=== PATIENT | female | born 1990 | race Caucasian/White ===

== ENCOUNTER 2020-04-06 13:43 | Outpatient (CLI) | payer OTHER ==
--- NOTE | 2020-04-06 15:05 | ULT ---
Pelvic ultrasound: 04/06/2020 COMPARISON: None HISTORY: 30-year-old female with vaginal bleeding TECHNIQUE: Multiplanar grayscale sonographic imaging of the pelvis is obtained. Imaging includes orr sabdominal and endovaginal imaging. The ovaries are assessed with Doppler interrogation including color flow and spectral analysis. FINDINGS: The uterus measures 7.0 x 3.7 x 4.3 cm. No normal appearing gestational sac is appreciated on this exam. On the endovaginal imaging in the region of the lower uterine segment there is a lobulated hypoechoic structure associated with the endometrium which measures 1.3 x 1.7 x 1.0 cm. Thi s could represent an abnormal gestational sac or a fluid collection. Endometrial thickness is approximately 1.5 cm. No significant free fluid is seen in the pelvis. Right ovary measures 3.1 x 1.5 x 1.3 cm. Left ovary measures 3.8 x 2.1 x 1.9 cm. There is a 1 cm foll icle within the left ovary. No adnexal mass. IMPRESSION: No normal gestational sac is seen. There is a hypoechoic structure in the lower uterine s egment region which suggest fluid within the endometrial canal or an abnormal misshapen low gestational sac. No pole is seen. Findings are suspicious for spontaneous . Sonographically occult ectopic cannot be excluded. Recommend quantitative beta-hCG at this time and in 48 hours. Depending on results from quantitative beta-hCG, a follow-up pelvic ultrasound in 48 hours may be beneficial as well.
== END 2020-04-06 13:44 | disposition home or self-care (01) ==
LOC: BICULT 13:43
PROVIDERS: ATTEND Family Medicine
DX: O20.9 Hemorrhage in early pregnancy, unspecified (principal)
CPT/HCPCS: 76856